=== PATIENT | male | born 1930 | race Caucasian/White ===

== ENCOUNTER 2017-12-17 11:01 | Emergency (ER) | payer MEDICARE ==
[~2017-12-17] VITALS: Ht 167.6 cm; Wt 62.0 kg
--- NOTE | 2017-12-17 12:10 | RAD ---
PQRS Compliance Statement: One or more of the following individualized dose reduction techniques were utilized for this examination: 1. Automated exposure control 2. Adjustment of the mA and/or kV according to patient size 3. Use of iterative reconstruction technique CT HEAD WITHOUT CONTRAST History: FALL TODAY, TRAUMA TO BODY Comparison: None. Technique: Axial images are obtained of the head from the skull base through the vertex without IV contrast. Findings: No mass-effect, midline shift, extra-axial fluid collection, hemorrhage, or obvious acute infarction is identified. Basilar cisterns are patent. There is right frontal shunt catheter, tip terminates in the third ventricle. The ventricles and sulci are prominent, consistent with age-related cerebral atrophy. There is mild periventricular white matter hypoattenuation. This is a nonspecific finding but is commonly due to chronic small vessel ischemic disease. Bone windows demonstrate no acute calvarial abnormality. The visualized paranasal sinuses are clear. Mastoid air cells are well aerated. IMPRESSION: No acute intracranial abnormality. Electronically signed by: Hai Cannon MD (12/17/2017 12:07 PM) [id number]
--- NOTE | 2017-12-17 12:17 | RAD ---
AP PELVIS Clinical Indication: TRAUMA TO BODY, FALL Comparison: None. Findings: There is no acute pelvic fracture. The sacroiliac joints are symmetric. 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 There is no diastasis of the symphysis pubis. Stool mild to moderately distends the rectum. Vasectomy clips. IMPRESSION: No acute pelvic fracture. Electronically signed by: Hai Cannon MD (12/17/2017 12:13 PM) [id number]
--- NOTE | 2017-12-17 12:21 | RAD ---
CHEST AP ONLY Clinical Indication: TRAUMA, fall. Comparison: None. Findings: Right chest wall shunt catheter. 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 Cardiac size is normal. Parenchymal scarring in the lungs most apparent laterally on the right. There is no pneumothorax. No pleural effusion is appreciated. No acute bone abnormality. Resection or osteolysis of the distal left clavicle. IMPRESSION: No acute cardiopulmonary process. Electronically signed by: Hai Cannon MD (12/17/2017 12:18 PM) [id number]
--- NOTE | 2017-12-17 12:27 | EKG ---
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
[2017-12-17 12:28] LABS: HEMOGLOBIN ISTAT 15.3 gm/dL
--- NOTE | 2017-12-17 13:10 | ED.ADGEN ---
Adult General Chief Complaint Chief Complaint Unwitnessed fall at snf HPI HPI Patient is a 87-year-old snf patient who presents with accidental fall at snf. He states he was attempting to get into bed. He is found with his head of the bed. Patient reports landing on tailbone, he is ambulatory weightbearing seen. Patient denies hitting his head, headache, loss consciousness or neck pain. No medical symptoms preceding fall. Accuracy of history is limited due to presence of dementia. Patient is currently on Plavix. assisted nanotechnologist present who confirms and assist with history[] Review of Systems Review of Systems ROS as per HPI All other systems were reviewed and found to be within normal limits, except as documented in this note. Allergies Allergies Allergies Coded Allergies Type Severity Reaction Last Updated Verified celery Allergy Unknown 12/17/17 Yes codeine Allergy Unknown 12/17/17 Yes pineapple Allergy Unknown 12/17/17 Yes Uncoded Allergies Type Severity Reaction Last Updated Verified celery seed Allergy Unknown 12/17/17 Physical Exam Physical Exam Constitutional: Well developed, well nourished, no acute distress, non-toxic appearance. [] HENT: Normocephalic, atraumatic, bilateral external ears normal, oropharynx moist, no oral exudates, nose normal. [] Eyes: PERRLA, EOMI, conjunctiva normal, no discharge. [] Neck: Normal range of motion, no midline tenderness. [] Cardiovascular:Heart rate regular rhythm, no murmur [] Lungs & Thorax: Bilateral breath sounds clear to auscultation [] Abdomen: Bowel sounds normal, soft, no tenderness [] Skin: Warm, dry. [] Back: No midline tenderness. [] Extremities: No tenderness, no cyanosis, no clubbing, ROM intact, no edema. [] Neurologic: Alert and oriented X 1, normal motor function, normal sensory function, no focal deficits noted. [] Psychologic: Affect normal, judgement normal, mood normal. [] Current Patient Data Lab Results Laboratory Tests Test 12/17/17 12:15 12/17/17 12:21 White Blood Count 10.0 x10^3/uL (4.0-11.0) Red Blood Count 4.66 x10^6/uL (4.30-5.70) Hemoglobin 15.6 g/dL (13.0-17.5) Hematocrit 46.3 % (39.0-53.0) Mean Corpuscular Volume 99 fL (79-100) Mean Corpuscular Hemoglobin 34 pg (25-35) Mean Corpuscular Hemoglobin Concent 34 g/dL (31-37) Red Cell Distribution Width 12.6 % (11.5-14.5) Platelet Count 222 x10^3/uL (140-400) Neutrophils (%) (Auto) 74 % (31-73) H Lymphocytes (%) (Auto) 16 % (24-48) L Monocytes (%) (Auto) 10 % (0-9) H Eosinophils (%) (Auto) 1 % (0-3) Basophils (%) (Auto) 0 % (0-3) Neutrophils # (Auto) 7.3 x10^3uL (1.8-7.7) Lymphocytes # (Auto) 1.5 x10^3/uL (1.0-4.8) Monocytes # (Auto) 1.0 x10^3/uL (0.0-1.1) Eosinophils # (Auto) 0.1 x10^3/uL (0.0-0.7) Basophils # (Auto) 0.0 x10^3/uL (0.0-0.2) Total Bilirubin 0.4 mg/dL (0.2-1.0) Direct Bilirubin 0.1 mg/dL (0.0-0.2) Aspartate Amino Transferase (AST) 17 U/L (15-37) Alanine Aminotransferase (ALT) 31 U/L (16-63) Alkaline Phosphatase 76 U/L (46-116) Total Protein 7.0 g/dL (6.4-8.2) Albumin 3.0 g/dL (3.4-5.0) L POC Hemoglobin 15.3 gm/dL POC Hematocrit 45 % POC Sodium 144 mmol/L (135-145) POC Potassium 4.0 mmol/L (3.5-5.0) POC Chloride 107 mmol/L (98-110) POC Total CO2 26 mmol/L (23-32) Anion Gap 15 mmol/L (6-14) H POC Blood Urea Nitrogen 38 mg/dL (8-26) H POC Creatinine 0.8 mg/dL (0.5-1.4) Glucose Level 103 mg/dL (60-99) H POC Ionized Calcium (Otto) 1.13 mmol/L (1.13-1.32) EKG EKG [Gi: Normal sinus rhythm, no acute ST-T wave changes, QTC 74, left ventricular hypertrophy criteria met. QTC 422.] Radiology/Procedures Radiology/Procedures [CT head/chest x-ray/pelvis: No acute injury per radiology report.] Course & Med Decision Making Course & Med Decision Making Pertinent Labs and Imaging studies reviewed. (See chart for details) [Imaging, EKG and lab reviewed. Patient medically stable. Will return to snf.] Final Impression Final Impression [1. Fall from standing 2. Minor head injury] Dragon Disclaimer Dragon Disclaimer This electronic medical record was generated, in whole or in part, using a voice recognition dictation system. KARLA BARRETO DO Dec 17, 2017 13:10
[2017-12-17 13:29] LABS: BASO % 0 % (0-3); EOS # 0.1 x10^3/uL (0.0-0.7); EOS % 1 % (0-3); HEMATOCRIT 46.3 % (39.0-53.0); HEMOGLOBIN 15.6 g/dL (13.0-17.5); LYMPH # 1.5 x10^3/uL (1.0-4.8); LYMPH % 16 % (24-48); MEAN CORPUSCULAR HEMOGLOBIN 34 pg (25-35); MEAN CORPUSCULAR HGB CONC 34 g/dL (31-37); MEAN CORPUSCULAR VOLUME 99 fL (79-100); MONO % 10 % (0-9); NEUT # 7.3 x10^3uL (1.8-7.7); NEUT % 74 % (31-73); PLATELET COUNT 222 x10^3/uL (140-400); RED BLOOD COUNT 4.66 x10^6/uL (4.30-5.70); RED CELL DISTRIBUTION WIDTH 12.6 % (11.5-14.5)
[2017-12-17 13:32] VITALS: BP 145/79
[2017-12-17 13:53] LABS: DIRECT BILIRUBIN 0.1 mg/dL (0.0-0.2); TOTAL BILIRUBIN 0.4 mg/dL (0.2-1.0)
== END 2017-12-17 13:57 | disposition home or self-care (01) ==
LOC: ER 11:01
DX: S09.90XA Unspecified injury of head, initial encounter (principal); Z88.5 Allergy status to narcotic agent; Z91.018 Allergy to other foods; W17.89XA Other fall from one level to another, initial encounter; Y93.89 Activity, other specified; Y99.8 Other external cause status; Y92.128 Other place in nursing home as the place of occurrence of the external cause
CPT/HCPCS: 36415; 70450; 71045; 72170; 80047; 80076; 85025; 93005; 99285-25

== ENCOUNTER 2018-01-05 11:11 | Emergency (ER) | payer MEDICARE ==
--- NOTE | 2018-01-05 11:31 | PHYS DOC ---
Past History Past Medical History: Hypertension, TIA, Other Past Surgical History: Other Adult General Chief Complaint Chief Complaint: Shunt problem HPI HPI Patient is a [87] year old [male] resident of senior living brought in by EMS because of abnormal finding in his shunt. Patient has cerebroventricular shunt placement for long time and senior living staff reported that there is some swelling of his shunt area. Also there was a report of one episode of vomiting today. Patient is alert and oriented 1 wheelchair-bound and denies any problem. Review of Systems Review of Systems Unable to obtain because of dementia Allergies Allergies Allergies Coded Allergies Type Severity Reaction Last Updated Verified celery Allergy Unknown 12/17/17 Yes codeine Allergy Unknown 12/17/17 Yes pineapple Allergy Unknown 12/17/17 Yes Uncoded Allergies Type Severity Reaction Last Updated Verified celery seed Allergy Unknown 12/17/17 Physical Exam Physical Exam Constitutional: Well nourished, no acute distress, non-toxic appearance. [] HENT: Normocephalic, atraumatic, right shunt without edema with feeling the catheter under scalp skin, oropharynx moist, no oral exudates, nose normal. [] Eyes: PERRLA, EOMI, conjunctiva normal, no discharge. [] Neck: Normal range of motion, no tenderness, supple, no stridor. [] Cardiovascular:Heart rate regular rhythm, no murmur [] Lungs & Thorax: Bilateral breath sounds clear to auscultation [] Abdomen: Bowel sounds normal, soft, no tenderness, no masses, no pulsatile masses. [] Skin: Warm, dry, no erythema, no rash. [] Back: No tenderness, no CVA tenderness. [] Extremities: No tenderness, no cyanosis, no clubbing, ROM intact, no edema. [] Neurologic: Alert and oriented X 1, normal motor function, normal sensory function, no focal deficits noted. [] Psychologic: Affect normal EKG EKG EKG by me. EKG at 1136 showed sinus arrhythmia, leftward axis, left ventricular hypertrophy, T-wave abnormality in lateral leads, no acute ST and T- wave abnormalities[] Radiology/Procedures Radiology/Procedures [][address] [address] IMAGING REPORT Signed PATIENT: LONDON PHILLIPS ACCOUNT: [id number] : 1930 LOCATION: ER AGE: 87 SEX: M EXAM STATUS: REG ER ORD. PHYSICIAN: CHILO SOLIMAN MD REASON: problem with shunt PROCEDURE: CT HEAD WO CONTRAST EXAM: Head CT without contrast. HISTORY: Shunt malfunction. TECHNIQUE: Computed tomographic images of the head were obtained without contrast. *One or more of the following individualized dose reduction techniques were utilized for this examination: 1. Automated exposure control. 2. Adjustment of the mA and/or kV according to patient size. 3. Use of iterative reconstruction technique. COMPARISON: 12/17/2017. FINDINGS: There is a right frontal approach ventricular shunt terminating within the midline between the frontal horns of the lateral ventricles. This is unchanged in position compared to the prior study. There is stable ventricular enlargement compared to the prior study. There are areas of decreased attenuation within the cerebral white matter, likely due to chronic small vessel disease. There is suspected encephalomalacia along the right ventricular catheter tract. There is cerebral and cerebellar volume loss. The visualized portions of the orbits, paranasal sinuses and mastoid air cells are unremarkable. No suspicious calvarial lesion is seen. IMPRESSION: 1. Right frontal approach ventricular catheter unchanged in position. The ventricles are prominent and stable in size. 2. Decreased attenuation within the cerebral white matter, likely due to chronic small vessel disease. 3. Cerebral volume loss. Electronically signed by: Bárbara Lemus MD (01/05/2018 11:56 AM) [facility] Course & Med Decision Making Course & Med Decision Making Pertinent Labs and Imaging studies reviewed. (See chart for details) Evaluation of patient in ER showed 87-year-old male patient sent from senior living because of concern of senior living staff for swelling of the shunt. The patient did not have any swelling and it was just feeling the catheter under scalp skin. Patient had 1 episode of vomiting according to senior living staff report. Patient had stable vital signs without hypotension, fever, tachycardia or new change of mental status according to his daughter. Patient had labs that showed mild dehydration and hypernatremia and UTI and treated with IV fluid and Rocephin and prescription for Cipro was given. Lactic acid and white count was normal. Patient was discharged from senior living. Dragon Disclaimer Dragon Disclaimer This electronic medical record was generated, in whole or in part, using a voice recognition dictation system. Departure Departure: Impression: Primary Impression: UTI (urinary tract infection) Additional Impressions: Presence of ventricular shunt Hyponatremia Dehydration Vomiting Disposition: 01 HOME, SELF-CARE (released to senior living at 1431) Condition: STABLE Referrals: CORA BRAMBILA MD (PCP) Patient Instructions: Dehydration, Adult, Hypernatremia, Urinary Tract Infection Additional Instructions: Drink plenty of liquids Follow-up with your primary care physician in 3-5 days Return to ER if not getting better Scripts Ciprofloxacin Hcl (CIPRO) 250 Mg Tablet 1 TAB PO BID, #14 TAB Prov: CHILO SOLIMAN MD 01/05/18 Problem Qualifiers CHILO SOLIMAN MD Jan 05, 2018 11:31
--- NOTE | 2018-01-05 11:59 | RAD ---
EXAM: Head CT without contrast. HISTORY: Shunt malfunction. TECHNIQUE: Computed tomographic images of the head were obtained without contrast. *One or more of the following individualized dose reduction techniques were utilized for this examination: 1. Automated exposure control. 2. Adjustment of the mA and/or kV according to patient size. 3. Use of iterative reconstruction technique. COMPARISON: 12/17/2017. FINDINGS: There is a right frontal approach ventricular shunt terminating within the midline between the frontal horns of the lateral ventricles. This is unchanged in position compared to the prior study. There is stable ventricular enlargement compared to the prior study. There are areas of decreased attenuation within the cerebral white matter, likely due to chronic small vessel disease. There is suspected encephalomalacia along the right ventricular catheter tract. There is cerebral and cerebellar volume loss. The visualized portions of the orbits, paranasal sinuses and mastoid air cells are unremarkable. No suspicious calvarial lesion is seen. IMPRESSION: 1. Right frontal approach ventricular catheter unchanged in position. The ventricles are prominent and stable in size. 2. Decreased attenuation within the cerebral white matter, likely due to chronic small vessel disease. 3. Cerebral volume loss. Electronically signed by: Bárbara Lemus MD (01/05/2018 11:56 AM) [facility]
[2018-01-05 12:37] LABS: BASO % 0 % (0-3); EOS # 0.1 x10^3/uL (0.0-0.7); EOS % 1 % (0-3); HEMATOCRIT 50.5 % (39.0-53.0); HEMOGLOBIN 16.8 g/dL (13.0-17.5); LYMPH # 2.2 x10^3/uL (1.0-4.8); LYMPH % 23 % (24-48); MEAN CORPUSCULAR HEMOGLOBIN 33 pg (25-35); MEAN CORPUSCULAR HGB CONC 33 g/dL (31-37); MEAN CORPUSCULAR VOLUME 99 fL (79-100); MONO # 0.7 x10^3/uL (0.0-1.1); MONO % 8 % (0-9); NEUT # 6.7 x10^3uL (1.8-7.7); NEUT % 68 % (31-73); RED BLOOD COUNT 5.09 x10^6/uL (4.30-5.70); RED CELL DISTRIBUTION WIDTH 13.1 % (11.5-14.5); WHITE BLOOD COUNT 9.8 x10^3/uL (4.0-11.0)
[2018-01-05 12:48] LABS: ALBUMIN 3.2 g/dL (3.4-5.0); ALBUMIN/GLOBULIN RATIO 0.8 (1.0-1.7); ALK PHOS 117 U/L (46-116); ALT (SGPT) 64 U/L (16-63); ANION GAP 4 (6-14); AST (SGOT) 33 U/L (15-37); BLOOD UREA NITROGEN 32 mg/dL (8-26); BUN/CREATININE RATIO 32 (6-20); CALCIUM 9.8 mg/dL (8.5-10.1); CARBON DIOXIDE 32 mmol/L (21-32); CHLORIDE 110 mmol/L (98-107); GFR 70.5; GLUCOSE 82 mg/dL (70-99); LIPASE 57 U/L (73-393); POTASSIUM 4.3 mmol/L (3.5-5.1); SODIUM 146 mmol/L (136-145); TOTAL BILIRUBIN 0.4 mg/dL (0.2-1.0); TOTAL PROTEIN 7.1 g/dL (6.4-8.2)
[2018-01-05] MEDS ORDERED: IV NORMAL SALINE 500ML 500 ML IV ONE (13:00)
[2018-01-05 13:08] LABS: PLT ESTIMATE ADEQUATE (ADEQUATE)
[2018-01-05 13:10] LABS: PLATELET CLUMP PRESENT
--- NOTE | 2018-01-05 13:45 | EKG ---
[address] [address] Test Date: 2018-01-05 Test Time: 11:36:44 Pat Name: LONDON PHILLIPS Department: Room: Gender: M Mechanical Engineering Intern: QI : 1930 Requested By: CHILO SOLIMAN Order Number: [id number] Reading MD: Jamison Canales MD Measurements Intervals [place] Rate: 70 P: HI: QRS: -26 QRSD: 90 T: 99 QT: 386 QTc: 420 Interpretive Statements SINUS ARRHYTHMIA PAC'S Electronically Signed On 01-06-2018 13:28:25 CDT by Jamison Canales MD
[2018-01-05 14:04] LABS: BILIRUBIN,URINE NEG (NEG); CLARITY,URINE TURBID; COLOR,URINE YELLOW; GLUCOSE,URINE NEG (NEG)
[2018-01-05 14:05] LABS: AMORPHOUS SEDIMENT,UR PRESENT /HPF; BACTERIA,URINE MOD /HPF (0-FEW); NITRITE,URINE NEG (NEG); RBC,URINE >40 /HPF (0-2); SQUAMOUS EPITHELIAL CELL,UR FEW /LPF; UROBILINOGEN,URINE 0.2 mg/dL (0.2 mg/dL); WBC,URINE >40 /HPF (0-4)
[2018-01-05] MEDS ORDERED: cefTRIAXone IV Push 1 GM VIAL. IVP ONE (14:15)
[2018-01-05] MEDS ORDERED: CIPR250T30 PO (14:32)
[2018-01-05 16:04] VITALS: BP 187/86
== END 2018-01-05 16:04 | disposition home or self-care (01) ==
LOC: ER 11:11
DX: N39.0 Urinary tract infection, site not specified (principal); E87.1 Hypo-osmolality and hyponatremia; E86.0 Dehydration; Z98.2 Presence of cerebrospinal fluid drainage device; I10 Essential (primary) hypertension; Z86.73 Personal history of transient ischemic attack (TIA), and cerebral infarction without residual deficits; Z88.5 Allergy status to narcotic agent; Z91.018 Allergy to other foods
CPT/HCPCS: 36415; 70450; 80053; 81001; 82553; 83605; 83690; 84484; 85025; 85610; 87086; 93005; 96361; 96374; 99285; J0696; J7040; 87186